=== PATIENT | male | born 1980 | race Caucasian/White ===

== ENCOUNTER 2021-08-31 20:31 | Observation (INO) ==
[2021-08-31 20:35] VITALS: TEMP 97.7
[2021-08-31 21:16] LABS: Bilirubin,Urine Negative (Negative); Blood,Urine Negative (Negative); Clarity,Urine Clear (Clear); Color,Urine Colorless (Yellow); Glucose,Urine (UA) Normal (Normal); Ketones,Urine Negative (Negative); Leukocyte Esterase,Urine Negative (Negative); Nitrite,Urine Negative (Negative); PH,Urine 6.5 pH Units (5.0-8.0); Protein,Urine Negative (Neg-Trace); Specific Gravity,Urine 1.013 (1.010-1.025); Urobilinogen,Urine Normal (Normal)
[2021-08-31 21:27] LABS: Alanine Aminotransferase 29 Units/L (7-52); Albumin 4.7 g/dL (3.5-5.7); Albumin/Globulin Ratio 2.1 (1.1-2.2); Alkaline Phosphatase 57 Units/L (34-104); Aspartate Amino Transferase 16 Units/L (13-39); BUN/Creatinine Ratio 13 (6-26); Bilirubin,Indirect 0.4 mg/dL (0.0-1.0); Bilirubin,Total 0.4 mg/dL (0.3-1.0); Blood Urea Nitrogen 12 mg/dL (6-20); Calcium 10.7 mg/dL (8.6-10.3); Carbon Dioxide 32 mEq/L (23-29); Chloride 100 mEq/L (98-107); Globulin 2.2 g/dL (2.4-3.5); Glucose 101 mg/dL (70-105); Lipase 55 Units/L (11-82); Osmolality,Calculated 288 (280-300); Potassium 3.8 mEq/L (3.5-5.1); Sodium 139 mEq/L (136-145); Total Protein 6.9 g/dL (6.4-8.9); eGFR For African Americans > 60 (> 60); eGFR For Non-African Americans > 60 (> 60)
[2021-08-31] MEDS ORDERED: Isovue-370 500 ML BOTTLE IVP ONE (21:27)
[2021-08-31 21:40] LABS: White Blood Count 11.5 K/mcL (4.3-11.1)
[2021-08-31 21:41] LABS: Basophils # 0.1 K/mcL (0.0-0.2); Basophils % 0.5 %; Eosinophils # 0.1 K/mcL (0.0-0.6); Hematocrit 45.2 % (37.5-50.1); Hemoglobin 15.1 g/dL (12.9-16.9); Immature Granulocytes % 0.5 % (0-4); Lymphocytes # 4.9 K/mcL (0.6-4.6); Lymphocytes % 42.9 %; Mean Corpuscular HGB Conc 33.4 g/dL (31.6-35.5); Mean Corpuscular Hemoglobin 31.2 pg (28.0-33.3); Mean Corpuscular Volume 93.4 fL (83.0-100.0); Mean Platelet Volume 10.6 fL (9.4-12.4); Monocytes # 1.1 K/mcL (0.0-1.3); Monocytes % 9.3 %; Neutrophils # 5.2 K/mcL (1.6-8.9); Platelet Count 287 K/mcL (140-400); Red Blood Count 4.84 M/mcL (4.19-5.50); Red Cell Distribution Width 12.5 % (11.5-14.5); Segmented Neutrophils % 45.8 %
[2021-08-31] MEDS ORDERED: Naloxone 0.4 MG/ML INJ IVP PRN (23:36)
[2021-08-31] MEDS ORDERED: Ondansetron ODT 4 MG TAB.RAPDIS SL PRN (23:36)
[2021-08-31] MEDS ORDERED: Melatonin 3 MG TABLET PO PRN (23:36)
[2021-08-31 23:43] VITALS: BP 131/78; PULSE 71; O2SAT 99
[2021-08-31] MEDS ORDERED: Ringers Solution, Lactated 1,000 ML IVC SCH (23:45)
[2021-08-31] MEDS ORDERED: *HR* OxyCODONE/APAP 5/325 TABLET PO PRN (23:59)
[2021-09-01] MEDS ORDERED: *HR* OxyCODONE/APAP 10/325 TABLET PO PRN
== END 2021-09-01 02:04 | disposition left against medical advice (07) ==
LOC: 3ANU 20:31 → EMEROOARM 20:31 → 3ANU 09-01 00:10
PROVIDERS: ADMIT Internal Medicine; ATTEND Internal Medicine